=== PATIENT | male | born 1985 | race African-American/Black ===

== ENCOUNTER 2016-12-23 15:28 | Emergency (ER) | payer BC ==
[~2016-12-23] VITALS: Ht 182.9 cm; Wt 165.4 kg
[~2016-12-23 15:28] MED LIST: DIPH25CA65 PO
[2016-12-23 15:37] VITALS: BP 90/54; TEMP 36.9; Ht 182.9 cm; Wt 165.4 kg
[2016-12-23] MEDS ORDERED: DIPHTHERIA/TETANUS/PERTUSSIS 0.5 ML SYR/VIAL IM. ONE (16:45)
[2016-12-23] MEDS ORDERED: XYLOCAINE 1%/SOD BICARB 20 ML VIAL INFIL ONE (16:45)
--- NOTE | 2016-12-23 16:45 | EMERGENCY ROOM VISIT NOTE ---
ED Visit Note First contact with patient: 16:25 CHIEF COMPLAINT: Left leg laceration HISTORY OF PRESENT ILLNESS: This 31-year-old male patient presents to the emergency department ambulatory after cutting the left leg when he was helping to move the dryer and the corner of the dryer hit him and caused a laceration. The bleeding has stopped. Denies weakness or numbness of the foot or toes. The patient denies any pain. The patient denies any other injuries. The patient's Tetanus shot is not up to date. REVIEW OF SYSTEMS: A 6 system review of systems was completed with positives and pertinent negatives listed in the HPI. ALLERGIES: Shrimp MEDICATIONS: None PMH: None SOCIAL HISTORY: The patient lives locally. He is employed PHYSICAL EXAM: Vital Signs: Reviewed Nurse's notes, vital signs stable. GENERAL : This is a 31-year-old male, in no acute distress, well-developed, well- nourished. SKIN: There is a 5 cm long laceration on the medial aspect of the left lower leg. The edges gape apart with traction. There is no foreign material in the wound and it looks clean. There is no bleeding. No deep structures such as tendons, bones, or nerves are seen in the base of the wound. Normal strength and movement of the foot and toes. Capillary refill less than 2 seconds. Normal sensation to light and sharp touch. EMERGENCY DEPARTMENT COURSE: I examined the patient. Using sterile technique the wound was cleaned with Betadine. The area was sterilely draped. 6 ml of 1% buffered lidocaine was used to anesthetize the laceration on the leg. Once the patient was numb, the wound was copiously irrigated under pressure with sterile saline. The wound was explored and was as described above. The laceration was repaired using four interrupted subcuticular 4-0 Vicryl sutures were used to close the subcutaneous tissue and 5 vertical mattress 4-0 nylon and 6 simple interrupted 4-0 nylon sutures were used to close the skin with the wound edges being well approximated. The patient tolerated the procedure well. The bleeding stopped. The area was cleaned with sterile saline and dressed with bacitracin ointment and bandage. The patient was given Td immunization. The patient was discharged home in good condition. Problem List Medical Problems: (1) Asthma Status: Chronic Current/Historical Medications No Active Prescriptions or Reported Meds Allergies Coded Allergies: Shrimp (Verified Allergy, Intermediate, HIVES, 12/23/16) SHELLFISH Vital Signs Date Time Temp Pulse Resp B/P (MAP) Pulse Ox O2 Delivery O2 Flow Rate FiO2 12/23/16 17:52 90 20 98 Room Air 12/23/16 15:37 36.9 114 20 90/54 98 Room Air Medications Administered Medications (Trade) Dose Ordered Sig/Tello Route Start Time Stop Time Status Last Admin Dose Admin Diphtheria/ Pertussis/Tetanus Vacc (Adacel Inj) 0.5 ml ONCE ONCE IM. 12/23/16 16:45 12/23/16 16:46 DC 12/23/16 17:03 0.5 ML Departure Information Impression Primary Impression: Laceration Dispostion Home / Self-Care Condition GOOD Prescriptions No Active Prescriptions or Reported Meds Referrals No Doctor, Assigned (PCP) Patient Instructions ED Laceration All, [facility] Additional Instructions Keep wound clean and dry. Do not allow any crusting or dried blood to accumulate on sutures. If this occurs, use a 1:1 solution of hydrogen peroxide/ water on a Q-tip to clean the wound. Use an antibiotic ointment for 3-4 days, then let wound dry. Suture removal in 12-14 days. Return sooner for any signs of infection (increasing redness, swelling, drainage). Ice and elevate for swelling and pain. Ibuprofen 600 mg and Tylenol 1000 mg every 6 hrs for pain. Keep covered when in sun until sutures removed then SPF 50 or higher for one year. Vitamin E oil if desired two weeks after suture removal for reduction of scar.
[2016-12-23 17:52] VITALS: PULSE 90; O2SAT 98
== END 2016-12-23 17:52 | disposition home or self-care (01) ==
LOC: C.EDB 15:29 → C.EDD 17:52
DX: S81.812A Laceration without foreign body, left lower leg, initial encounter (principal); W22.8XXA Striking against or struck by other objects, initial encounter; Z23 Encounter for immunization; J45.909 Unspecified asthma, uncomplicated; Z91.018 Allergy to other foods

== ENCOUNTER 2020-06-13 00:46 | Inpatient (IN) ==
[2020-06-13] MEDS ORDERED: SODIUM CHLORIDE 0.9% 1000ML 1,000 ML IV ONE (01:00)
[2020-06-13] MEDS ORDERED: fentaNYL citrate 100 MCG/2 ML VIAL IV STA ×2 (01:00→02:49)
[2020-06-13] MEDS ORDERED: ONDANSETRON INJ 2 MG/ML 2 ML VIAL IV STA ×2 (01:00→02:49)
--- NOTE | 2020-06-13 01:02 | Emergency Department Note ---
Impression & Plan DKA (diabetic ketoacidoses), Acute pancreatitis, Acute renal insufficiency ED Provider Note Name: BRYAN MITCHELL Age: 34 Sex: M Arrives Via: Walk-In Informant: Patient ED Provider: Helio Garay MD Chief Complaint: Vomiting Impression: DKA Acute Pancreatitis Acute Renal Insufficiency Medical Decision Makin yr old male without PMH who was diagnosed with DMII two weeks ago but yet to start prescribed medications. Notes several days increasing nausea, vomiting, and weakness. Associated weight loss of 20lbs the last few days. He is dehydrated, tachy and unwell appearing on arrival. Work-up consistent with DKA and renal insufficiency. Lipase quite elevated which may explain back pain though CT is read as negative at this time. Pain control, nausea, control and given IV fluids as clearly dehydrated. Started on insulin GTT and patient feeling much improved. Hospitalist in to evaluate further. No clear evidence that he is septic nor indication for abx at this time. No evidence surgical abdomen. Patient awake, alert, coherent without headache thus no neuro imaging indicated. Prior Medical Record and Triage/Nursing Notes reviewed by Me Additional history obtained from chart Differentials:Infection, dehydration, metabolic abnormality, hypo/hyperglycemia, electrolyte disturbance, anemia, hypoxia, cardiac sources, intracerebral event, toxicologic, neurologic, as well as other pathologies. Vital Signs: reviewed and remarkable for Tachy Interventions: saline lock, nss bolus 2L IV, zofran 4mg IV x 2, fentanyl 75mcg IV x 2, GI cocktail, insulin gtt Labs:Reviewed and remarkable for hyperglycemia, acidosis, elevated lactate, renal insufficiency Imaging:X ray results are stated below per my interpretation: Chest: 1 view: No infiltrate, no effusion, normal cardiac border. EKG:Per My Interpretation: Indication Weakness. Sinus tach 127 bpm, qt 348. No Ectopy. No Ischemia. Compared to EKG 05/03/19 rate has increased Cardiac/Tele Monitoring: Cardiac Monitoring: An Order was placed for continuous cardiac monitoring. The monitor shows a rate of 120 with a sinus tach rhythm. Consults:Dr Magdiel Taylor Hospitalist Plan: Disposition:Hospitalization. Condition: Good History of Present Illness:34 yr old male arrives for evaluation of vomiting. Patient notes he was diagnosed with DMII 2 weeks ago by PCP but has yet to start Metformin he was prescribed. He started feeling ill 4 to 5 days ago. This rapidly progressed to nausea, vomiting and developing mid back pain. Admits abdomen sore though not severe pain. Also has only had one BM in the last few days. No medications taken for this. Associated with 20lb weight loss. Denies fevers, chills, syncope, sob, cp, headache, neck pain, leg swelling, rashes, urinary changes nor other symptoms. No history of similar events. Denies falls, traumas, injury. ROS: See above HPI for pertinent positives & negatives. A total of 10 systems reviewed and were otherwise negative. Past Medical History:DMII, Asthma Past Surgical History:None Family History:Family history DMII Social History:Works at [employer], non-smoker Home Medications:None Allergies:NKDA, shrimp Vitals:Blood Pressure: 138/92, Pulse 121, RR 20, T 37.7C, O2 98% on RA Physical Exam: GENERAL: Patient is very uncomfortable and weak appearing and in moderate distress. Dehydrated appearing EYES: No scleral icterus, unremarkable pupils. ENT: Mucous membranes dry, no nasal congestion. NECK: No masses appreciated, nomeningismus, trachea is midline. RESPIRATORY: No dyspnea. Clear to auscultation and equal bilaterally. No wheeze, no rhonchi. CARDIOVASCULAR: Tachy.No murmurs, rubs, gallops appreciated. GASTROINTESTINAL: Abdomen soft, non-tender, no peritonitis.Bowel sounds positive.No masses appreciated. BACK: No midline tenderness, no CVA tenderness EXTREMITIES: Normal motion all extremities, no cyanosis, no edema. NEUROLOGIC: Alert and oriented, no acute motor or sensory deficits, no focal weakness, cranial nerves grossly intact. SKIN: No rash, no jaundice, no diaphoresis. Poor skin turgor PSYCH: Appropriate GCS: 15 ED Course: Times/Reassessments: gradually improving symptoms, stable, and agreeable to hospitalization Critical Care: I have personally spent 35 minutes of critical care time in the direct management of this patient. Acute DKA. This was a life/limb threatening event. This 35 minutes is in excess of all separately billable procedures. Helio Garay MD Past Med/Surg History Medical History (Updated 06/13/20 @ 05:17 by Helio Garay MD) Asthma Surgical History (System 10/31/19 @ 14:02 by Mary Angel) No significant past surgical history Social History (System 10/31/19 @ 14:02 by Mary Angel) Smoking Status: Never smoker Preferred Language: Croatian Feels Safe at Home: Yes Allergies Allergies Allergy/AdvReac Type Severity Reaction Status Date / Time shrimp Allergy Intermediate HIVES Verified 06/13/20 01:15 Home Meds Home Medications Medication Instructions Recorded Confirmed metformin 500 mg PO DAILY 06/13/20 06/13/20 Results & Data (ED) Vital Signs Vital Signs - 24 hr 06/13/20 00:49 06/13/20 02:46 06/13/20 04:00 Temperature 37.7 C H Temperature Source Temporal Artery Scan Pulse Rate 140 H Pulse Rate [Apical] 121 H 117 H Respiratory Rate 20 20 22 Respiratory Effort / Characteristics Non-Labored Non-Labored Non-Labored Spontaneous Respiratory Depth Normal Normal Normal Blood Pressure 138/93 Blood Pressure [Right Arm] 138/92 129/82 Blood Pressure Mean 108 Blood Pressure Mean [Right Arm] 107 97 Pulse Oximetry 98 98 96 Oxygen Delivery Method Room Air Room Air Room Air Sepsis Recent Fever Within 48 Hours No Sepsis New/Unexplained Change in Mental Status No Sepsis Action Taken by Nursing No Action Required Laboratory Data Result diagrams: 06/13/20 01:19 06/13/20 01:19 Lab Results 06/13/20 06/13/20 06/13/20 Range/Units 01:00 01:00 01:19 WBC 10.38 (4.8-10.8) K/uL RBC 6.07 (4.7-6.1) M/uL Hgb 17.4 (14.0-18.0) g/dL POC Hgb (14.0-18.0) g/dl Hct 49.2 (42-52) % POC Hct (42-52) % MCV 81.1 (80-100) fL MCH 28.7 (25-34) pg MCHC 35.4 (32-36) g/dL RDW Std Deviation 40.5 (36.4-46.3) fL RDW Coeff of Eitan 13.8 (11.5-14.5) % Plt Count 211 (130-400) K/uL MPV 12.5 H (7.4-10.4) fL Immature Gran % (Auto) 1.3 % Neut % (Auto) 72.9 % Lymph % (Auto) 22.4 % [place] % (Auto) 3.2 % Eos % (Auto) 0.0 % Baso % (Auto) 0.2 % Neut # (Auto) 7.58 H (1.4-6.5) K/uL Lymph # (Auto) 2.32 (1.2-3.4) K/uL [place] # (Auto) 0.33 (0.11-0.59) K/uL Eos # (Auto) 0.00 (0-0.5) K/uL Baso # (Auto) 0.02 (0-0.2) K/uL Immature Gran # (Auto) 0.13 H (0.00-0.02) K/uL PT (9.0-12.0) Seconds INR (0.9-1.1) APTT (21.0-31.0) Seconds PTT Ratio POC Sodium (135-144) mmol/L Sodium (136-145) mmol/L POC Potassium (3.3-5.0) mmol/L Potassium (3.5-5.1) mmol/L POC Chloride (101-112) mmol/L Chloride (98-107) mmol/L Carbon Dioxide (21-32) mmol/L POC Total CO2 (24-31) mmol/L Anion Gap (3-11) POC Anion Gap (16-25) mmol/L POC BUN (7-18) mg/dl BUN (7-18) mg/dl Creatinine (0.6-1.4) mg/dl POC Creatinine (0.6-1.3) mg/dl Est Cr Clr Drug Dosing ml/min Est GFR ( Amer) Est GFR (Non-Af Amer) BUN/Creatinine Ratio (10-20) Glucose (70-99) mg/dl POC Glucose (70-99) mg/dl POC Glucose (other) (70-99) mg/dl Lactate (0.4-2.0) mmol/L Calcium (8.5-10.1) mg/dl POC Ioniz Calcium Prakash (1.12-1.32) mmol/l Magnesium (1.8-2.4) mg/dl Total Bilirubin (0.2-1) mg/dl Direct Bilirubin (0-0.2) mg/dl AST (15-37) U/L ALT (12-78) U/L Alkaline Phosphatase (45-117) U/L Troponin I (0-0.045) ng/ml Total Protein (6.4-8.2) gm/dl Albumin (3.4-5.0) gm/dl Lipase (73-393) U/L Beta-Hydroxybutyric Acd (0.2-2.81) mg/dl TSH (0.300-4.500) uIu/ml COVID-19 Eval Order CovFluRsv at [facility] SARS-CoV-2 (PCR) NEGATIVE (Negative) Influenza Type A (PCR) Negative (Neg) Influenza Type B (PCR) Negative (Neg) RSV (RT-PCR) Negative (Neg) 06/13/20 06/13/20 06/13/20 Range/Units 01:19 01:19 01:19 WBC (4.8-10.8) K/uL RBC (4.7-6.1) M/uL Hgb (14.0-18.0) g/dL POC Hgb (14.0-18.0) g/dl Hct (42-52) % POC Hct (42-52) % MCV (80-100) fL MCH (25-34) pg MCHC (32-36) g/dL RDW Std Deviation (36.4-46.3) fL RDW Coeff of Eitan (11.5-14.5) % Plt Count (130-400) K/uL MPV (7.4-10.4) fL Immature Gran % (Auto) % Neut % (Auto) % Lymph % (Auto) % [place] % (Auto) % Eos % (Auto) % Baso % (Auto) % Neut # (Auto) (1.4-6.5) K/uL Lymph # (Auto) (1.2-3.4) K/uL [place] # (Auto) (0.11-0.59) K/uL Eos # (Auto) (0-0.5) K/uL Baso # (Auto) (0-0.2) K/uL Immature Gran # (Auto) (0.00-0.02) K/uL PT 10.9 (9.0-12.0) Seconds INR 1.0 (0.9-1.1) APTT 25.9 (21.0-31.0) Seconds PTT Ratio 0.9 POC Sodium (135-144) mmol/L Sodium 135 L (136-145) mmol/L POC Potassium (3.3-5.0) mmol/L Potassium 3.6 (3.5-5.1) mmol/L POC Chloride (101-112) mmol/L Chloride 107 (98-107) mmol/L Carbon Dioxide 4 L* (21-32) mmol/L POC Total CO2 (24-31) mmol/L Anion Gap 23.0 H (3-11) POC Anion Gap (16-25) mmol/L POC BUN (7-18) mg/dl BUN 12 (7-18) mg/dl Creatinine 1.82 H (0.6-1.4) mg/dl POC Creatinine (0.6-1.3) mg/dl Est Cr Clr Drug Dosing 88.0 ml/min Est GFR ( Amer) 55.7 Est GFR (Non-Af Amer) 48.1 BUN/Creatinine Ratio 6.3 L (10-20) Glucose 461 H* (70-99) mg/dl POC Glucose (70-99) mg/dl POC Glucose (other) (70-99) mg/dl Lactate 1.8 (0.4-2.0) mmol/L Calcium 9.6 (8.5-10.1) mg/dl POC Ioniz Calcium Prakash (1.12-1.32) mmol/l Magnesium 2.4 (1.8-2.4) mg/dl Total Bilirubin 0.6 (0.2-1) mg/dl Direct Bilirubin 0.3 H (0-0.2) mg/dl AST 7 L (15-37) U/L ALT 45 (12-78) U/L Alkaline Phosphatase 125 H (45-117) U/L Troponin I < 0.015 (0-0.045) ng/ml Total Protein 9.0 H (6.4-8.2) gm/dl Albumin 4.4 (3.4-5.0) gm/dl Lipase 6430 H (73-393) U/L Beta-Hydroxybutyric Acd 87.83 H (0.2-2.81) mg/dl TSH 1.190 (0.300-4.500) uIu/ml COVID-19 Eval Order SARS-CoV-2 (PCR) (Negative) Influenza Type A (PCR) (Neg) Influenza Type B (PCR) (Neg) RSV (RT-PCR) (Neg) 06/13/20 06/13/20 06/13/20 Range/Units 01:32 03:50 04:53 WBC (4.8-10.8) K/uL RBC (4.7-6.1) M/uL Hgb (14.0-18.0) g/dL POC Hgb 18.4 H (14.0-18.0) g/dl Hct (42-52) % POC Hct 54 H (42-52) % MCV (80-100) fL MCH (25-34) pg MCHC (32-36) g/dL RDW Std Deviation (36.4-46.3) fL RDW Coeff of Eitan (11.5-14.5) % Plt Count (130-400) K/uL MPV (7.4-10.4) fL Immature Gran % (Auto) % Neut % (Auto) % Lymph % (Auto) % [place] % (Auto) % Eos % (Auto) % Baso % (Auto) % Neut # (Auto) (1.4-6.5) K/uL Lymph # (Auto) (1.2-3.4) K/uL [place] # (Auto) (0.11-0.59) K/uL Eos # (Auto) (0-0.5) K/uL Baso # (Auto) (0-0.2) K/uL Immature Gran # (Auto) (0.00-0.02) K/uL PT (9.0-12.0) Seconds INR (0.9-1.1) APTT (21.0-31.0) Seconds PTT Ratio POC Sodium 138 (135-144) mmol/L Sodium (136-145) mmol/L POC Potassium 3.7 (3.3-5.0) mmol/L Potassium (3.5-5.1) mmol/L POC Chloride 112 (101-112) mmol/L Chloride (98-107) mmol/L Carbon Dioxide (21-32) mmol/L POC Total CO2 7 L* (24-31) mmol/L Anion Gap (3-11) POC Anion Gap 24.0 (16-25) mmol/L POC BUN 10 (7-18) mg/dl BUN (7-18) mg/dl Creatinine (0.6-1.4) mg/dl POC Creatinine 1.1 (0.6-1.3) mg/dl Est Cr Clr Drug Dosing ml/min Est GFR ( Amer) Est GFR (Non-Af Amer) BUN/Creatinine Ratio (10-20) Glucose (70-99) mg/dl POC Glucose 408 H* 394 H* (70-99) mg/dl POC Glucose (other) 475 H* (70-99) mg/dl Lactate (0.4-2.0) mmol/L Calcium (8.5-10.1) mg/dl POC Ioniz Calcium Prakash 1.33 H (1.12-1.32) mmol/l Magnesium (1.8-2.4) mg/dl Total Bilirubin (0.2-1) mg/dl Direct Bilirubin (0-0.2) mg/dl AST (15-37) U/L ALT (12-78) U/L Alkaline Phosphatase (45-117) U/L Troponin I (0-0.045) ng/ml Total Protein (6.4-8.2) gm/dl Albumin (3.4-5.0) gm/dl Lipase (73-393) U/L Beta-Hydroxybutyric Acd (0.2-2.81) mg/dl TSH (0.300-4.500) uIu/ml COVID-19 Eval Order SARS-CoV-2 (PCR) (Negative) Influenza Type A (PCR) (Neg) Influenza Type B (PCR) (Neg) RSV (RT-PCR) (Neg) Administered Medications Insulin Human Regular 250 (units/ Sodium Chloride) 250 mls @ 3.8 mls/hr IV .Q24H [facility]; Protocol Stop: 07/13/20 01:59 Last Titration: 06/13/20 04:59 Dose: 5.5 units/hr, 5.5 mls/hr Documented by: [id number] Cosigned by: [id number] Titration: 06/13/20 03:52 Dose: 4.6 units/hr, 4.6 mls/hr Documented by: [id number] Cosigned by: [id number] Admin: 06/13/20 02:48 Dose: 3.8 units/hr, 3.8 mls/hr Documented by: [id number] Cosigned by: [id number] Sodium Chloride (Nss 1000ml) 1,000 mls @ 250 mls/hr IV .Q4H [facility] Stop: 07/13/20 01:59 Last Admin: 06/13/20 02:50 Dose: 250 mls/hr Documented by: [id number] Discontinued Medications Al Hydrox/Mg Hydrox/Simethicone (Gi Cocktail Ed Use) 1 dose PO ONE ONE Stop: 06/13/20 02:50 Last Admin: 06/13/20 03:14 Dose: 1 dose Documented by: [id number] Fentanyl Citrate (Fentanyl Citrate 100 Mcg/2 Ml Vial) 75 mcg IV NOW STA Stop: 06/13/20 01:01 Last Admin: 06/13/20 01:22 Dose: 75 mcg Documented by: [id number] Fentanyl Citrate (Fentanyl Citrate 100 Mcg/2 Ml Vial) 75 mcg IV NOW STA Stop: 06/13/20 02:50 Last Admin: 06/13/20 03:14 Dose: 75 mcg Documented by: [id number] Sodium Chloride (Nss 1000ml) 1,000 mls @ 999 mls/hr IV .Q1H1M ONE Stop: 06/13/20 02:00 Last Admin: 06/13/20 01:21 Dose: 999 mls/hr Documented by: [id number] Insulin Human Regular (Novolin-R Bolus From Bag) 6 units IV ONE ONE Stop: 06/13/20 02:31 Last Admin: 06/13/20 02:48 Dose: 6 units Documented by: [id number] Cosigned by: [id number] Ondansetron HCl (Ondansetron Inj 2 Mg/Ml 2 Ml Vial) 4 mg IV NOW STA Stop: 06/13/20 01:01 Last Admin: 06/13/20 01:21 Dose: 4 mg Documented by: [id number] Ondansetron HCl (Ondansetron Inj 2 Mg/Ml 2 Ml Vial) 4 mg IV NOW STA Stop: 06/13/20 02:50 Last Admin: 06/13/20 03:14 Dose: 4 mg Documented by: [id number] Discharge Plan Visit Data Chief Complaint: Vomiting Stated Complaint: VOMITING ED Provider: Helio Garay Discharge Problem: DKA (diabetic ketoacidoses), Acute pancreatitis, Acute renal insufficiency Forms Stand Alone Forms: [facility] [employer] Prescriptions Prescriptions: No Action metformin 500 mg tablet extended release 24 hr 500 mg PO DAILY RF: 0 Discharge Problem: DKA (diabetic ketoacidoses) Qualifiers: Diabetes mellitus type: type 1 Diabetes mellitus complication detail: without coma Qualified Code(s): E10.10 - Type 1 diabetes mellitus with ketoacidosis without coma Acute pancreatitis Qualifiers: Pancreatitis type: other Acute pancreatitis complication: unspecified Qualified Code(s): K85.80 - Other acute pancreatitis without necrosis or infection
[2020-06-13 01:30] LABS: Basophils # (auto) 0.02 K/uL (0-0.2); Basophils % (auto) 0.2 %; Hematocrit (blood only) 49.2 % (42-52); Hemoglobin 17.4 g/dL (14.0-18.0); Immature Granulocytes # (auto) 0.13 K/uL (0.00-0.02); Immature Granulocytes % (auto) 1.3 %; Lymphocytes # (auto) 2.32 K/uL (1.2-3.4); Lymphocytes % (auto) 22.4 %; Mean Corpuscular Hemoglobin 28.7 pg (25-34); Mean Corpuscular Hgb Conc 35.4 g/dL (32-36); Mean Corpuscular Volume 81.1 fL (80-100); Mean Platelet Volume 12.5 fL (7.4-10.4); Monocytes # (auto) 0.33 K/uL (0.11-0.59); Monocytes % (auto) 3.2 %; Neutrophils # (auto) 7.58 K/uL (1.4-6.5); Neutrophils % (auto) 72.9 %; Platelet Count 211 K/uL (130-400); RDW Coefficient of Variation 13.8 % (11.5-14.5); RDW Standard Deviation 40.5 fL (36.4-46.3); Red Blood Count 6.07 M/uL (4.7-6.1); White Blood Count 10.38 K/uL (4.8-10.8)
[2020-06-13 01:41] LABS: Partial Thromboplastin Ratio 0.9; Partial Thromboplastin Time 25.9 Seconds (21.0-31.0); Prothrombin Time 10.9 Seconds (9.0-12.0)
[2020-06-13 01:55] LABS: Influenza A virus by PCR Negative (Neg); Influenza B virus by PCR Negative (Neg); RSV by PCR Negative (Neg); SARS CoV2 RNA(COVID-19) InHosp NEGATIVE (Negative)
[2020-06-13 01:58] LABS: Alanine Aminotransferase 45 U/L (12-78); Albumin Level 4.4 gm/dl (3.4-5.0); Aspartate Aminotransferase 7 U/L (15-37); BUN Creatinine Ratio 6.3 (10-20); Bilirubin Direct 0.3 mg/dl (0-0.2); Blood Urea Nitrogen 12 mg/dl (7-18); Calcium 9.6 mg/dl (8.5-10.1); Carbon Dioxide 4 mmol/L (21-32); Chloride 107 mmol/L (98-107); Est GFR (African American) 55.7; Est GFR (Non-African American) 48.1; Glucose 461 mg/dl (70-99); Magnesium 2.4 mg/dl (1.8-2.4); Potassium 3.6 mmol/L (3.5-5.1); Sodium 135 mmol/L (136-145)
[2020-06-13] MEDS ORDERED: DKA GOAL RANGE 150-250 mg/dl ONE ×2 (01:59→05:34)
[2020-06-13] MEDS ORDERED: SODIUM CHLORIDE 0.9% 1000ML 1,000 ML IV SCH ×2 (02:00→05:34)
[2020-06-13 02:06] LABS: iSTAT Creatinine 1.1 mg/dl (0.6-1.3); iSTAT Hemoglobin 18.4 g/dl (14.0-18.0); iSTAT Ionized Calcium 1.33 mmol/l (1.12-1.32); iSTAT Potassium 3.7 mmol/L (3.3-5.0)
[2020-06-13 02:28] LABS: Alkaline Phosphatase 125 U/L (45-117); Bilirubin,Total 0.6 mg/dl (0.2-1); Lipase 6430 U/L (73-393); Troponin I < 0.015 ng/ml (0-0.045)
[2020-06-13] MEDS ORDERED: NovoLIN-R BOLUS FROM BAG IV ONE (02:30)
[2020-06-13 02:36] LABS: Beta-Hydroxybutyrate 87.83 mg/dl (0.2-2.81)
[2020-06-13] MEDS: INSULIN REGULAR 250 UNITS in SODIUM CHLORIDE 0.9% 247.5 ML IV SCH ×2 (02:48→21:37)
[2020-06-13] MEDS ORDERED: GI COCKTAIL ED USE PO ONE (02:49)
[2020-06-13 05:16] LABS: Base Excess ABG -20.8 mEq/L (-9-1.8); HCO3 ABG 6 mmol/L (19-24); Oxygen Saturation ABG 97.1 % (90-95); PCO2 ABG 18 mmHg (35-46); PO2 ABG 108 mmHg (80-95)
[2020-06-13 05:25] LABS: Allen Test Pos (Pos); pH ABG 7.14 (7.35-7.45)
[2020-06-13] MEDS ORDERED: DC ALL PREVIOUSLY ORDERED DIABETES MEDS ONE (05:34)
[2020-06-13] MEDS ORDERED: PENDING 1/2NSS+20mEq KCL IVF SCH (05:34)
[2020-06-13] MEDS ORDERED: ONDANSETRON INJ 2 MG/ML 2 ML VIAL IV PRN (05:34)
[2020-06-13] MEDS ORDERED: ACETAMINOPHEN 325 MG TAB PO PRN (05:34)
[2020-06-13] MEDS ORDERED: NITROGLYCERIN SL 0.4 MG/TAB TAB SL PRN (05:34)
[2020-06-13] MEDS ORDERED: INSULIN REGULAR 250 UNITS in SODIUM CHLORIDE 0.9% 247.5 ML IV SCH (05:34)
[2020-06-13 05:38] LABS: BUN Creatinine Ratio 7.8 (10-20); Calcium 8.9 mg/dl (8.5-10.1); Creatinine Clr Calc Pharmacy 100.1 ml/min; Est GFR (African American) 65.1; Est GFR (Non-African American) 56.2; Magnesium 2.7 mg/dl (1.8-2.4); Phosphorus 2.6 mg/dl (2.5-4.9); Potassium 3.6 mmol/L (3.5-5.1)
[2020-06-13] MEDS ORDERED: GLUCOSE 10 TABS/TUBE PO PRN (06:00)
[2020-06-13] MEDS ORDERED: CARBOHYDRATES FOR HYPOGLYCEMIA PO PRN (06:00)
[2020-06-13] MEDS ORDERED: GLUCOSE 40% GEL 15 GM TUBE PO PRN (06:00)
[2020-06-13] MEDS ORDERED: GLUCAGON FOR INJ 1 MG VIAL SQ PRN (06:00)
[2020-06-13] MEDS ORDERED: DEXTROSE 50% 50 ML SYRINGE IV PRN (06:00)
[2020-06-13 06:09] LABS: Appearance Urine Clear (Clear); Bacteria Urine Automated Negative (Negative); Bilirubin Urine Negative (Negative); Blood Urine 2+ (Negative); Color Urine Yellow; Glucose Urine UA 3+ (Negative); Ketones Urine 4+ (Negative); Leukocyte Esterase Urine Negative (Negative); Nitrite Urine Negative (Negative); Protein Urine 3+ (Negative); Specific Gravity Urine 1.031 (1.000-1.030); Urobilinogen Urine Negative (Negative)
[2020-06-13 06:10] LABS: Beta-Hydroxybutyrate 100.94 mg/dl (0.2-2.81)
[2020-06-13] MEDS ORDERED: PHARMACY GLYCEMIC MGMT CONSULT PRN (06:12)
[2020-06-13] MEDS: SODIUM CHLOR 0.45% + 20MEQ KCL 20 MEQ/1,000 ML BAG IV SCH ×4 (06:20→14:25)
[2020-06-13] MEDS ORDERED: HYDROmorphone INJ 0.5 MG/0.5 ML SYR IV PRN (06:40)
[2020-06-13] MEDS ORDERED: SODIUM CHLORIDE 0.9% 500 ML IV SCH (07:00)
[2020-06-13 07:14] LABS: Chol HDL Ratio 5; Cholesterol 261 mg/dl (0-200); HDL Cholesterol 48 mg/dl; LDL Cholesterol Calculated 163 mg/dl; Triglycerides 248 mg/dl (0-150); VLDL Cholesterol 50 mg/dl
[2020-06-13] MEDS: INSULIN ASPART 100 UNITS/ML 3 ML PEN SC SCH ×5 (07:17→20:50)
[2020-06-13] MEDS: FAMOTIDINE 20 MG in SYRINGE 3 ML IV SCH ×2 (07:22→20:54)
[2020-06-13 07:47] LABS: Estimated Average Glucose 292 mg/dl; Hemoglobin A1C 11.8 % (4.5-5.6)
--- NOTE | 2020-06-13 07:55 | Electrocardiogram Report ---
Test Reason : Blood Pressure : / mmHG Vent. Rate : 127 BPM Atrial Rate : 127 BPM P-R Int : 116 ms QRS Dur : 084 ms QT Int : 348 ms P-R-T Axes : 036 042 016 degrees QTc Int : 505 ms Poor data quality, interpretation may be adversely affected Sinus tachycardia Possible Left atrial enlargement Borderline ECG When compared with ECG of 03-MAY-2019 04:00, Vent. rate has increased BY 58 BPM Nonspecific T wave abnormality no longer evident in Anterolateral leads Confirmed by Cyril Pompa ([id number]) on 06/13/2020 7:55:06 AM Referred By: REFERRED SELF Confirmed By:Cyril Pompa
--- NOTE | 2020-06-13 07:55 | Electrocardiogram Report ---
Test Reason : Blood Pressure : / mmHG Vent. Rate : 123 BPM Atrial Rate : 123 BPM P-R Int : 122 ms QRS Dur : 090 ms QT Int : 336 ms P-R-T Axes : 042 033 006 degrees QTc Int : 481 ms Sinus tachycardia Possible Left atrial enlargement Borderline ECG When compared with ECG of 13-JUN-2020 01:12, No significant change Confirmed by Cyril Pompa ([id number]) on 06/13/2020 7:55:41 AM Referred By: REFERRED SELF Confirmed By:Cyril Pompa
[2020-06-13] MEDS ORDERED: [UNRECOGNIZED DRUG - OTHER] ONE (08:15)
--- NOTE | 2020-06-13 08:25 | History and Physical Report ---
DATE OF ADMISSION: 06/13/2020 CHIEF COMPLAINT: Nausea, vomiting, recent diagnosis of diabetes. HISTORY OF PRESENT ILLNESS: This is a 34-year-old male with past medical history significant for asthma cold-induced, morbid obesity, recent diagnosis of diabetes, comes with nausea, vomiting and found to be in DKA. The patient was diagnosed with diabetes a couple of weeks ago with at that time HbA1c of 8.8, was placed on metformin. He says he has not started the medication and is not checking his sugars at home because he does not have a glucometer yet. In the last 2-3 days, he has had severe nausea, vomiting, could not eat anything and that is the reason he came to the hospital. Denies any abdominal pain.Found to be in DKA, somewhat tachycardic, mild temp spike in the ER. Blood pressure is okay. His creatinine is 1.8, bicarbonate is 4. Sugars are in the [address] of abdomen and pelvis preliminary report was okay. Currently resting comfortably. Denies any chest pain, no shortness of breath, no cough, no fever, no chills, no headache, no blurred vision, no earache, no runny nose, no sore throat, no difficulty swallowing. No abdominal pain. Did not have much bowel movement because he is not eating much. Urine is dark. No swelling in the legs. ALLERGIES: SHRIMP. PAST MEDICAL HISTORY: As mentioned above. PAST SURGICAL HISTORY: None. MEDICATIONS: Metformin extended release 500 mg p.o. daily -- the patient did not start yet. FAMILY HISTORY: Significant for brother has diabetes, father has diabetes. SOCIAL HISTORY: Occasional cigars. No alcohol, no drug use. REVIEW OF SYSTEMS: As per HPI. Rest of the systems negative. PHYSICAL EXAMINATION: GENERAL: The patient is morbidly obese, not in acute distress. VITAL SIGNS: T-max 37.7, pulse in the 100s, blood pressure 138/92, respiratory rate 20, oxygen 98% on room air. HEENT: Pupils are round and reactive to light. Oral mucosa dry. NECK: No JVD, no neck masses. CARDIOVASCULAR: S1, S2 heard. Tachycardia. No murmurs. RESPIRATORY SYSTEM: Normal AP diameter. No accessory muscle use. No wheezing, no crackles. ABDOMEN: Soft, bowel sounds present, nontender. No distention. CENTRAL NERVOUS SYSTEM: Cranial nerves II-XII grossly intact. Nonfocal. EXTREMITIES: No edema, no erythema. LABORATORY DATA: WBC 10, hemoglobin 17.4, hematocrit 49.2, platelets 211. PT 10.9, INR 1, APTT 25.9. Sodium 135, potassium 3.6, chloride 107, bicarbonate 4, BUN 12, creatinine 1.8, serum glucose 461. Lactate 1.8, calcium 9.6, ionized calcium 1.33, magnesium 2.4, total bilirubin 0.6, direct bilirubin 0.3, AST 7, ALT 45, alkaline phosphatase 125. Troponin I less than 0.015. Lipase 6430. Beta hydroxybutyric acid 87.8. TSH 1.1. SARS-CoV-2 PCR negative. Influenza A and B negative. RSV PCR negative. IMAGING: CT of abdomen and pelvis without contrast, preliminary report; areas of mid small and large bowel wall thickening or underdistention, no evidence of obstruction. Normal caliber appendix. Dense material in the gallbladder, fatty liver. No hydronephrosis or ureteral stone. Chest x-ray, no acute findings. EKG: Sinus tachycardia, rate of 127, possible left atrial enlargement. ASSESSMENT AND PLAN: This is a 34-year-old male who presents with nausea, vomiting and found to be in diabetic ketoacidosis. 1. Diabetic ketoacidosis, nausea, vomiting, anion gap metabolic acidosis. Recently diagnosed with diabetes. Was started on metformin, which the patient is not taking. Received fluid bolus and insulin in the Emergency Room. We will continue with aggressive IV fluids per diabetic ketoacidosis protocol with maintenance and change to d5/1n nS when sugars are in range until gap is closed. To supplement with KCL if potassium drops with iv insulin. Insulin drip per diabetic ketoacidosis protocol. Hold metformin. Glycemic pharmacy consult. Follow repeat laboratories and serial laboratories as per diabetic ketoacidosis protocol. Closely monitor in telemetry floor. If worsening of condition, we will transfer to intensive care unit. Subcutaneous insulin when anion gap is closed. Follow repeat HbA1c levels. Closely monitor. 2. Elevated lipase. The patient does not have any abdominal pain and CAT scan on the preliminary report, no significant findings. We will follow the repeat lipase levels. Consulted Gastrointestinal. 3. Acute kidney injury from above, getting fluids. Avoid nephrotoxic agents. We will follow the repeat laboratories. 4. Morbid obesity, needs counseling and sleep apnea test as outpatient. 5. History of asthma cold-induced, currently stable. 6. Deep venous thrombosis prophylaxis, sequential compression devices for now. 6. Disposition: Closely monitor in the telemetry floor. Level 1 full code. Expect to discharge home and follow with his family doctor. AZALIA
--- NOTE | 2020-06-13 08:37 | CT Scan Report ---
ABDOMEN AND PELVIS CT WITHOUT CONTRAST CT DOSE: 1752.79 mGy.cm HISTORY: Acute generalized abdominal pain with vomiting. diffuse abdominal to back pain. Vomit with out BM TECHNIQUE: Multiaxial CT images of the abdomen and pelvis were performed without contrast. A dose lo wering technique was utilized adhering to the principles of ALARA. COMPARISON STUDY: Chest radiograph of same day FINDINGS: Clear lung bases. There is no pneumatosis or pneumoperitoneum. Imaged inferior cardiac tra bers are unremarkable. The spleen, pancreas, and adrenal glands are unremarkable. Question gallbladde r sludge. Hepatic steatosis. Kidneys, ureters, urinary bladder and prostate are unremarkable. Unremar kable aorta and IVC. There is no adenopathy. There is no bowel obstruction or bowel wall thickening. The appendiceal tip measures the upper limits of normal at [address] evidence of acute appendicitis. No ascites. Unremarkable soft tiss ues. Small posterior disc osteophyte complex formations are noted at L3-L4 and L4-L5. Bones appear in tact. IMPRESSION: 1. No bowel obstruction or bowel wall thickening. 2. The appendiceal tip measures within the upper limits of normal at [address] evidence of acute appendicitis. 3. Hepatic steatosis. ACT 112: Negative or not required by law. The above report was generated using voice recognition software. It may contain grammatical, syntax o r spelling errors. Electronically signed by: Abhi Padilla M.D. 06/13/2020 8:36 AM
--- NOTE | 2020-06-13 09:03 | XRay Report ---
XR chest 1V portable HISTORY: 34 years-old Male intractable vomiting acute nausea with vomiting COMPARISON: Chest radiograph 05/03/2019, CT abdomen and pelvis 06/13/2020 TECHNIQUE: Portable AP view of the chest FINDINGS: Cardiomediastinal and hilar silhouettes are within normal limits. Mild right hemidiaphragmatic elevat ion. No pneumothorax, pleural effusion, airspace consolidation or overt pulmonary edema. Bones of the chest appear grossly intact. IMPRESSION: No acute process. ACT 112: Negative or not required by law. The above report was generated using voice recognition software. It may contain grammatical, syntax o r spelling errors. Electronically signed by: Abhi Padilla M.D. 06/13/2020 9:01 AM
[2020-06-13 09:52] LABS: BUN Creatinine Ratio 7.4 (10-20); Creatinine Clr Calc Pharmacy 102.6 ml/min; Est GFR (African American) 67.1; Est GFR (Non-African American) 57.9; Magnesium 2.7 mg/dl (1.8-2.4); Phosphorus 1.7 mg/dl (2.5-4.9); Potassium 3.5 mmol/L (3.5-5.1)
--- NOTE | 2020-06-13 10:18 | Hospitalist Progress Note ---
Date of Service June 13, 2020 Assessment & Plan (1) DKA (diabetic ketoacidoses): A1C>11. Persistent acidosis with bicarb of 5 and gap of 20. Cont insulin at current rate of 9.5 and adjust per protocol. Cont current fluids (D51/2 NSS + KCl 20Meq) @ 250cc/hr until glucose in range and then add dextrose to solution. He is clinically improved. No need for bicarb drip at this time with pH 7.1. Cont PCU monitoring. He is hungry so will allow diet, and cover carbohydrates with DQ insulin per protocol as ordered. I discussed the tentative plan with he and his , and tentatively would consider discharge on once daily basal insulin with metformin intermediate release twice daily as originally given by PCP. Close follow-up will be required. Patient is aware of goal for decreased percent body fat to improve health overall. (2) Acute renal failure: Improving with IVF at current rate. Cont to monitor with q4h BMP. (3) Morbid obesity due to excess calories: Lifestyle modifications already started at home over the last two weeks and reports excessive weight loss during this time. Cont to encourage healthy living and eating. (4) Acid reflux: Pepcid as needed for symptom control. (5) Hepatic steatosis: Related to morbid obesity and hope to improve with weight loss efforts. Will need to be monitored outpatient by PCP. (6) DVT prophylaxis: Heparin/ambulation/SCDs Full Code Dispo-cont PCU monitoring, expect to home when acidosis resolves and symptoms have completely resolved, and tolerating food without issues-likely 1-2 days. This time will be needed for his body to readjust to now utilizing the energy from glucose and to allow us to understand better what his more typical insulin needs will be-currently they are higher than average with acidotic state. Body needs time to adjust, and this was explained to the patient. Seda Paige DO [facility] Hospitalist Admission and Anticipated Discharge Date Admission Date: June 13, 2020 Subjective 34 yo M with new onset DM, likely Type II, recently diagnosed 2 weeks ago. He questioned the accuracy of the diagnosis performed initially, and was noncompliant with metformin given. Presented with acidotic state. Reports improvement overnight with acid reflux, nausea, fatigue and malaise Reports slight headache No other infectious symptoms present such as UTI symptoms, cough, fevers, chills, or SOB. Denies CP or other foot hand pain or decreased sensation at this time Denies changes in vision. Reports feeling hungry Review of Systems Review of Systems: All systems reviewed & are unremarkable except as noted in Subjective Physical Exam Physical Exam: CONSTITUTIONAL: obese, vitals as above, generally well- appearing EYES: normal conjunctivae, no scleral icterus ENT: external ear and nose normal, MMM RESPIRATORY: clear to auscultation bilaterally, no crackles, rales or wheezes, normal respiratory effort CARDIOVASCULAR: tachy rate and regular rhythm, S1 and 2 heard without murmurs, gallops or rubs, no JVD, no peripheral edema GASTROINTESTINAL: soft, nontender, nondistended, no guarding MUSCULOSKELETAL: strength 5/5 throughout, head is normocephalic and atraumatic SKIN: warm and dry NEUROLOGIC: CN 2-12 grossly intact, no sensory deficit, normal cognition, normal speech, no tremor, no gross focal deficits. PSYCHIATRIC: alert cooperative and oriented to person, place and time. Euthymic mood, makes good eye contact, language grossly intact, recent and remote memory grossly intact. Results & Data Results & Data ([facility]) Vital Signs (Past 12 Hours) Vital Signs Temp Pulse Pulse Resp BP BP BP 06/13/20 07:40 36.8 C 117 H 24 155/80 H 06/13/20 06:38 150 H 06/13/20 05:42 36.8 C 120 H 24 134/86 06/13/20 05:34 06/13/20 04:00 117 H 22 129/82 06/13/20 02:46 121 H 20 138/92 06/13/20 00:49 37.7 C H 140 H 20 138/93 Pulse Ox Pulse Ox 06/13/20 07:40 94 06/13/20 06:38 06/13/20 05:42 99 06/13/20 05:34 99 06/13/20 04:00 96 06/13/20 02:46 98 06/13/20 00:49 98 Laboratory Results Short CBC 06/13/20 Range/Units 01:19 WBC 10.38 (4.8-10.8) K/uL Hgb 17.4 (14.0-18.0) g/dL Hct 49.2 (42-52) % Plt Count 211 (130-400) K/uL BMP 06/13/20 06/13/20 06/13/20 01:19 04:53 08:55 Sodium 135 L 138 139 Potassium 3.6 3.6 3.5 Chloride 107 112 H 114 H Carbon Dioxide 4 L* 6 L* 5 L* BUN 12 13 12 Creatinine 1.82 H 1.60 H 1.56 H Glucose 461 H* 436 H* 321 H* Calcium 9.6 8.9 9.0 Cardiac Enzymes 06/13/20 Range/Units 01:19 Troponin I < 0.015 (0-0.045) ng/ml Liver Function 06/13/20 Range/Units 01:19 Total Bilirubin 0.6 (0.2-1) mg/dl Direct Bilirubin 0.3 H (0-0.2) mg/dl AST 7 L (15-37) U/L ALT 45 (12-78) U/L Alkaline Phosphatase 125 H (45-117) U/L Albumin 4.4 (3.4-5.0) gm/dl Urine 06/13/20 Range/Units 05:45 Urine Color Yellow Urine Appearance Clear (Clear) Urine pH 5.0 (4.5-7.5) Ur Specific [place] 1.031 H (1.000-1.030) Urine Protein 3+ H (Negative) Urine Glucose (UA) 3+ H (Negative) Diagnostic Findings [facility], [id number] CT Scan Report Patient: Amber MITCHELL Date: 06/13/20#: [id number]: [address] [facility] ID:[id number]: Date: 1985ty Zip: [place], [place] [address]Vcy: 34Location: 2SSex: MRoom/Bed: [id number] Phy: Seda Paige, DODiagnosis: VOMITINGPri Phy: Kaveh Michelle MDService Date: 06/13/20Fa Phy:Interpreting Phy: William PadillaAdmit Phy: Jed Veloz MD Ordering Phy: Helio Garay M.D. cc: ~ ABDOMEN AND PELVIS CT WITHOUT CONTRAST CT DOSE: 1752.79 mGy.cm HISTORY: Acute generalized abdominal pain with vomiting. diffuse abdominal to back pain. Vomit without BM TECHNIQUE: Multiaxial CT images of the abdomen and pelvis were performed without contrast. A dose lowering technique was utilized adhering to the principles of ALARA. COMPARISON STUDY: Chest radiograph of same day FINDINGS: Clear lung bases. There is no pneumatosis or pneumoperitoneum. Imaged inferior cardiac chambers are unremarkable. The spleen, pancreas, and adrenal glands are unremarkable. Question gallbladder sludge. Hepatic steatosis. Kidneys, ureters, urinary bladder and prostate are unremarkable. Unremarkable aorta and IVC. There is no adenopathy. There is no bowel obstruction or bowel wall thickening. The appendiceal tip measures the upper limits of normal at [address] evidence of acute appendicitis. No ascites. Unremarkable soft tissues. Small posterior disc osteophyte complex formations are noted at L3-L4 and L4-L5. Bones appear intact. IMPRESSION: 1. No bowel obstruction or bowel wall thickening. 2. The appendiceal tip measures within the upper limits of normal at [address] evidence of acute appendicitis. 3. Hepatic steatosis. ACT 112: Negative or not required by law. The above report was generated using voice recognition software. It may contain grammatical, syntax or spelling errors. Electronically signed by: Abhi Padilla M.D. 06/13/2020 8:36 AM Dictated: 06/13/20825Transcribed: 06/13/20825 [facility], [id number] XRay Report Patient: Amber MITCHELL Date: 06/13/20#: [id number]: [address] [facility] ID:[id number]: Date: 1985City Zip: [place], [place] [address]Hcx: 34Location: 2SSex: MRoom/Bed: [id number] Phy: Seda Paige, SAMiagnosis: VOMITINGPri Phy: Kaveh Michelle, MDService Date: 06/13/20Fam Phy:Interpreting Phy: William PadillaAdmit Phy: Sneha Veloz MD Ordering Phy: Helio Garay M.D. cc: ~ XR chest 1V portable HISTORY: 34 years-old Male intractable vomiting acute nausea with vomiting COMPARISON: Chest radiograph 05/03/2019, CT abdomen and pelvis 06/13/2020 TECHNIQUE: Portable AP view of the chest FINDINGS: Cardiomediastinal and hilar silhouettes are within normal limits. Mild right hemidiaphragmatic elevation. No pneumothorax, pleural effusion, airspace consolidation or overt pulmonary edema. Bones of the chest appear grossly intact. IMPRESSION: No acute process. ACT 112: Negative or not required by law. The above report was generated using voice recognition software. It may contain grammatical, syntax or spelling errors. Electronically signed by: Abhi Padilla M.D. 06/13/2020 9:01 AM Dictated: 06/13/20 0858 Medications Administered Current Inpatient Medications Acetaminophen (Acetaminophen 325 Mg Tab) 650 mg PO Q4H PRN PRN Reason: Pain or Fever Stop: 07/13/20 05:33 Dextrose (Dextrose 50% 50 Ml Syringe) 25 - 50 ml IV UD PRN; Protocol PRN Reason: Hypoglycemia Protocol Stop: 07/13/20 05:59 Glucagon (Glucagon For Inj 1 Mg Vial) 1 mg SQ UD PRN; Protocol PRN Reason: Hypoglycemia Protocol Stop: 07/13/20 05:59 Glucose (Glucose 40% Gel 15 Gm Tube) 15 - 30 gm PO UD PRN; Protocol PRN Reason: Hypoglycemia Protocol Stop: 07/13/20 05:59 Glucose (Glucose 10 Tabs/Tube) 4 - 8 tabs PO UD PRN; Protocol PRN Reason: Hypoglycemia Protocol Stop: 07/13/20 05:59 Hydromorphone HCl (Hydromorphone Inj 0.5 Mg/0.5 Ml Syr) 0.5 mg IV Q3H PRN PRN Reason: Pain Stop: 06/27/20 06:39 Last Admin: 06/13/20 07:22 Dose: 0.5 mg Documented by: Insulin Human Regular 250 (units/ Sodium Chloride) 250 mls @ 9.5 mls/hr IV .Q24H VENANCIO; Protocol Stop: 07/13/20 01:59 Last Titration: 06/13/20 09:22 Dose: 9.5 units/hr, 9.5 mls/hr Documented by: Potassium Chloride/Sodium Chloride (1/2 Nss + 20meq Kcl 1000ml) 20 meq in 1,000 mls @ 250 mls/hr IV .Q4H VENANCIO Stop: 07/13/20 05:59 Last Admin: 06/13/20 06:20 Dose: 250 mls/hr Documented by: Famotidine 20 mg/ Syringe 5 mls @ 2.5 mls/min IV BID VENANCIO Stop: 07/13/20 06:44 Last Admin: 06/13/20 07:22 Dose: 2.5 mls/min Documented by: Insulin Aspart (Insulin Aspart 100 Units/Ml 3 Ml Pen) 0 units SC ACHS VENANCIO Stop: 07/13/20 07:29 Last Admin: 06/13/20 07:17 Dose: Not Given Documented by: Miscellaneous (Pending D5 1/2ns+20meq Kcl Ivf) 1 ea N/A Q2H VENANCIO Stop: 07/13/20 05:33 Miscellaneous (Carbohydrates For Hypoglycemia ) 15 - 30 gm PO UD PRN PRN Reason: Hypoglycemia Treatment Stop: 07/13/20 05:59 Miscellaneous Information (Pharmacy Glycemic Mgmt Consult) 1 ea N/A UD PRN PRN Reason: Consult Stop: 07/13/20 06:11 Nitroglycerin (Nitroglycerin Sl 0.4 Mg/Tab Tab) 0.4 mg SL UD PRN PRN Reason: Chest Pain Stop: 07/13/20 05:33 Ondansetron HCl (Ondansetron Inj 2 Mg/Ml 2 Ml Vial) 4 mg IV Q6H PRN PRN Reason: Nausea Stop: 07/13/20 05:33 Last Admin: 06/13/20 07:22 Dose: 4 mg Documented by: (1) DKA (diabetic ketoacidoses) Diabetes mellitus complication detail: without coma Diabetes mellitus type: type 1 Qualified Code(s): E10.10 - Type 1 diabetes mellitus with ketoacidosis without coma
[2020-06-13 10:38] LABS: Beta-Hydroxybutyrate 92.91 mg/dl (0.2-2.81)
--- NOTE | 2020-06-13 10:40 | Gastrointestinal Consultation ---
Date of Consultation June 13, 2020 Assessment & Plan (1) Elevated lipase: Although patient meets the criteria for acute pancreatitis (Pain + elevated Lipase), I do not think he has acute pancreatitis, his pain is from DKA which also causes hyperlipasemia. Please obtain Ultrasound abdomen to check for gallstones. Recall GI if needed. (2) Abdominal pain: History of Present Illness Attending Physician: Seda Paige DO 34 years old male patient with DM, presented to the hospital with diffuse abdominal pain and vomiting, found to have severe anaion gap metabolic acidosis, likely DKA. Labs showed elevated Lipase, normal LFTs, CT scan abdomen showed no evidence of pancreatitis. GI consulted for possible pancreatitis. Patient ate his entire tray of regular diet for breakfast and has no abdominal pain. Reports Hx of GERD and occasional heartburn. No vomiting since admission. No similar episodes in the past. Allergies Allergy/AdvReac Type Severity Reaction Status Date / Time crab Allergy Severe edema Verified 06/13/20 08:58 airway shellfish derived Allergy Severe edema Verified 06/13/20 08:58 airway squid Allergy Severe edema Verified 06/13/20 08:58 airway shrimp Allergy Intermediate HIVES Verified 06/13/20 01:15 Home Medications Medication Instructions Recorded Confirmed Type metformin 500 mg PO DAILY 06/13/20 06/13/20 History Patient History Medical History (Updated 06/13/20 @ 10:43 by Alex Teran MD) Asthma Surgical History (System 10/31/19 @ 14:02 by Mary Angel) No significant past surgical history Social History (System 10/31/19 @ 14:02 by Mary Angel) Smoking Status: Never smoker Second Hand Exposure: No; Do You Dip or Chew Tobacco: No; Tobacco Cessation Education Requested by Patient: No Hx Alcohol Use: No Hx Substance Use: No Preferred Language: Irish Communication Ability: Effective Cycle Director Required: Voice Beliefs That Will Affect Care: Yazidism Yazidism Beliefs: DOES NOT EAT PORK Current Living Situation: Spouse and Family Feels Safe at Home: Yes Safety Concerns: Feels Safe At This Time Assistive Devices: Glasses Review of Systems Constitutional: no fever, no chills, no fatigue and no weight loss Eyes: no eye pain and no worsening vision Ear, Nose, Mouth, Throat: no tinnitus, no dizziness, no nasal discharge and no epistaxis Respiratory: no cough, no dyspnea, no dyspnea on exertion and no wheezing Cardiovascular: no chest pain, no orthopnea, no palpitations and no edema Gastrointestinal: as per Subjective / HPI Musculoskeletal: no stiffness and no myalgia Neurologic: no localized weakness, no paralysis, no tremor(s) and no headache(s) Endocrine: no polydipsia and no polyuria Hematologic / Lymphatic: no easy bleeding and no night sweats Physical Exam Constitutional: + well hydrated, cooperative and comfortable Eyes: PERRL, conjunctivae normal, anicteric sclerae ENMT: external ear and nose normal, oropharynx normal Neck: normal visual inspection and trachea midline Respiratory: normal respiratory effort, lungs clear to auscultation Auscultation: no wheezes Cardiovascular: RRR, no murmur, no edema Gastrointestinal (Abdomen): normal bowel sounds, soft, nontender, no hepatosplenomegaly Musculoskeletal: no cyanosis or clubbing, extremities motor strength 5/5 Skin: no rashes, warm and dry Neurologic: awake; no focal motor deficits Motor/Sensory: no tremor Results & Data ([facility]) Vital Signs (Past 12 Hours) Vital Signs Temp Pulse Pulse Resp BP BP BP 06/13/20 07:40 36.8 C 117 H 24 155/80 H 06/13/20 06:38 150 H 06/13/20 05:42 36.8 C 120 H 24 134/86 06/13/20 05:34 06/13/20 04:00 117 H 22 129/82 06/13/20 02:46 121 H 20 138/92 06/13/20 00:49 37.7 C H 140 H 20 138/93 Pulse Ox Pulse Ox 06/13/20 07:40 94 06/13/20 06:38 06/13/20 05:42 99 06/13/20 05:34 99 06/13/20 04:00 96 06/13/20 02:46 98 06/13/20 00:49 98
[2020-06-13] MEDS ORDERED: PROMETHAZINE HCL 25 MG TAB PO ONE (10:42)
[2020-06-13] MEDS ORDERED: INSULIN GLARGINE SOLOSTAR 100 UNITS/ML 3 ML PEN SC ONE ×2 (12:00→21:00)
[2020-06-13] MEDS: HEPARIN SOD 5,000 UNIT/0.5 ML VIAL SQ SCH ×2 (13:24→20:51)
[2020-06-13 13:27] LABS: BUN Creatinine Ratio 6.8 (10-20); Calcium 8.7 mg/dl (8.5-10.1); Creatinine Clr Calc Pharmacy 98.8 ml/min; Est GFR (African American) 64.1; Est GFR (Non-African American) 55.3; Magnesium 2.8 mg/dl (1.8-2.4); Phosphorus 1.1 mg/dl (2.5-4.9); Potassium 3.6 mmol/L (3.5-5.1)
[2020-06-13] MEDS ORDERED: SODIUM PHOSPHATE 3 MMOL/1 ML 5 ML VIAL IV ONE (13:30)
--- NOTE | 2020-06-13 13:31 | Pharmacy Report ---
Pharmacy Glycemic Short Note 2 - Date of Service June 13, 2020 - Glycemic Short BSG Results (Last 24 hours): 06/13/20 06/13/20 06/13/20 01:19 01:32 03:50 Glucose 461 H* POC Glucose 408 H* POC Glucose (other) 475 H* 06/13/20 06/13/20 06/13/20 04:53 04:53 06:11 Glucose 436 H* POC Glucose 394 H* 392 H* POC Glucose (other) 06/13/20 06/13/20 06/13/20 07:15 08:17 08:55 Glucose 321 H* POC Glucose 338 H* 333 H* POC Glucose (other) 06/13/20 06/13/20 06/13/20 09:15 10:12 11:15 Glucose POC Glucose 329 H* 292 H 268 H POC Glucose (other) 06/13/20 12:12 Glucose POC Glucose 307 H* POC Glucose (other) OUTPATIENT ANTIDIABETIC REGIMEN: * Metformin 500mg daily (newly started) * A1c = 11.8% on 06/13/20 ASSESSMENT: * 34yo T2DM admitted with hyperglycemia, DKA. * Pt initiated on IV insulin infusion per protocol and hydration with 1/2 NS + 20mEq KCl @ 250 ml/hr. Average fluid loss in DKA is 3-6 liters. * Pt is tolerating diet well per CHO counts * IV insulin infusion rates are high; ranging 11.4-19.2 units/hr this morning. Will start the transition process from IV to SQ basal bolus since pt tolerating PO but this will be a LONG and SLOW transition based on baseline labs and degree of acidosis. Most likely patient will require 18-24 hrs on the infusion but transition completely off will be dictated by resolution of AG and acidosis. * Criteria for DC IV insulin infusion : Serum glucose below 200 mg/dL (DKA) or 250 to 300 mg/dL (HHS) Serum anion gap <12 meq/L Serum bicarbonate >15 meq/L Venous pH >7.30 PLAN FOR INPATIENT GLYCEMIC CONTROL: * Hold outpatient oral diabetes medications * Continue IV insulin infusion per protocol * Lower goal range from 150-250 mg/dl to 140-180 mg/dl to increase insulin administration to resolve acidosis. * When serum glucose reaches ~200mg/dl will change IVF to incorportate dextrose to allow for continued insulin administration until ketonemia is controlled while at the same time avoiding hypoglycemia. * Basal insulin * Lantus 45 units SQ x 1 dose with lunch * Will give PM dose of Lantus based on BSG scale * BSG < 140 mg/dl --> 0 units * BSG 140-180mg/dl --> 15 units * BSG > 180 --> 25 units * Will try to convert to Q24hr dosing tomorrow for easy transition to outpatient once daily dosing * Bolus insulin * NovoLog per scale ACHS or Q6hrs while NPO * Fixed Nutritional / Prandial insulin per carb ratio of 1 unit per 5 grams CHO consumed * Will add goal range and CF when pt transitioned off of infusion PLAN FOR DISCHARGE: * A1c > 10% * Goal A1c = <7 % based on age and comorbidities * A1c is greater than or equal to 10% --> consider triple therapy with metformin + basal insulin + (GLP1-RA OR prandial insulin). May need to continue additional antidiabetic agent based on patient specific factors (efficacy, hypo risk, weight gain/loss, side effects, cost) Recommend: * Continuing Metformin and titrating dose upwards. Typically the XR formulation of metformin is better tolerated than the immediate release formulation. Continue to titrate metformin dosing upwards as recommended. Dosage increases should be made in increments of 500 mg weekly, up to 2,000 mg/day PO, given in divided doses. Doses above 2000 mg/day may be better tolerated if divided and given 3 times per day with meals. Max: 2,550 mg/day PO, in divided doses * B12 supplementation may be necessary with snf metformin * Basal insulin: Lantus SQ daily. Dosing TBD. * Pt may need prandial insulin as well. Could start with NovoLog once daily with the largest meal of the day. Dosing TBD * Support Patient Self-Management * Healthy Lifestyle (diet, exercise, and smoking cessation) * Disease self-management (SMBG) * Prevention of complications (BP, Lipid goals, Immunizations) * Consider outpatient Diabetes Self-Management Education & Support * Most patients on multiple-dose insulin (MDI) should SMBG * Prior to meals and snacks * At bedtime * Prior to exercise * When they suspect low blood glucose * After treating low blood glucose until they are normoglycemic * Prior to critical tasks such as driving * Occasionally postprandially
[2020-06-13] MEDS ORDERED: SODIUM PHOSPHATE 30 MMOL in SODIUM CHLORIDE 0.9% 500 ML IV ONE (14:00)
[2020-06-13 14:02] LABS: Beta-Hydroxybutyrate 64.25 mg/dl (0.2-2.81)
[2020-06-13] MEDS: D5W AND 1/2NSS + 20MEQ KCL 20 MEQ/1,000 ML BAG IV SCH ×2 (17:06→21:57)
[2020-06-13] MEDS: PENDING D5 1/2NS+20mEq KCL IVF SCH ×3 (17:25→22:06)
[2020-06-13 17:39] LABS: BUN Creatinine Ratio 6.6 (10-20); Calcium 8.4 mg/dl (8.5-10.1); Creatinine Clr Calc Pharmacy 100.7 ml/min; Est GFR (African American) 65.6; Est GFR (Non-African American) 56.6; Magnesium 2.4 mg/dl (1.8-2.4); Potassium 3.3 mmol/L (3.5-5.1)
[2020-06-13 21:42] LABS: BUN Creatinine Ratio 5.7 (10-20); Calcium 8.3 mg/dl (8.5-10.1); Creatinine Clr Calc Pharmacy 100.1 ml/min; Est GFR (African American) 65.1; Est GFR (Non-African American) 56.2; Magnesium 2.3 mg/dl (1.8-2.4); Potassium 3.1 mmol/L (3.5-5.1)
[2020-06-13] MEDS ORDERED: POTASSIUM PHOS 3 MMOL/1 ML INFUSION IV STA (21:57)
[2020-06-13] MEDS ORDERED: POTASSIUM CHLORIDE CRTAB 20 MEQ TABCR PO STA (21:58)
[2020-06-13] MEDS ORDERED: POTASSIUM PHOSPHATE 40 MMOL in SODIUM CHLORIDE 0.9% 1000ML 1,000 ML IV ONE (22:00)
[2020-06-14 02:05] LABS: BUN Creatinine Ratio 4.9 (10-20); Calcium 8.2 mg/dl (8.5-10.1); Creatinine Clr Calc Pharmacy 100.1 ml/min; Est GFR (African American) 65.1; Est GFR (Non-African American) 56.2; Magnesium 2.3 mg/dl (1.8-2.4); Potassium 3.4 mmol/L (3.5-5.1)
[2020-06-14 02:24] LABS: Phosphorus 1.4 mg/dl (2.5-4.9)
[2020-06-14] MEDS ORDERED: POTASSIUM PHOS 3 MMOL/1 ML INFUSION IV STA ×3 (02:26→23:15)
[2020-06-14] MEDS ORDERED: POTASSIUM PHOSPHATE 40 MMOL in SODIUM CHLORIDE 0.9% 1000ML 1,000 ML IV ONE (02:30)
[2020-06-14] MEDS ORDERED: SODIUM CHLOR 0.45% + 20MEQ KCL 20 MEQ/1,000 ML BAG IV SCH (03:15)
[2020-06-14] MEDS ORDERED: D5W AND 1/2NSS + 20MEQ KCL 20 MEQ/1,000 ML BAG IV SCH (03:30)
[2020-06-14] MEDS: HEPARIN SOD 5,000 UNIT/0.5 ML VIAL SQ SCH ×3 (05:37→20:48)
[2020-06-14 07:37] LABS: BUN Creatinine Ratio 4.4 (10-20); Calcium 8.7 mg/dl (8.5-10.1); Creatinine Clr Calc Pharmacy 112.5 ml/min; Est GFR (African American) 75.2; Est GFR (Non-African American) 64.9; Magnesium 2.2 mg/dl (1.8-2.4)
[2020-06-14 07:57] LABS: Basophils # (auto) 0.01 K/uL (0-0.2); Basophils % (auto) 0.2 %; Eosinophils # (auto) 0.06 K/uL (0-0.5); Eosinophils % (auto) 1.1 %; Hemoglobin 13.9 g/dL (14.0-18.0); Immature Granulocytes # (auto) 0.04 K/uL (0.00-0.02); Immature Granulocytes % (auto) 0.7 %; Lymphocytes # (auto) 1.19 K/uL (1.2-3.4); Mean Corpuscular Hemoglobin 28.1 pg (25-34); Mean Corpuscular Hgb Conc 35.6 g/dL (32-36); Mean Corpuscular Volume 78.9 fL (80-100); Mean Platelet Volume 11.5 fL (7.4-10.4); Monocytes # (auto) 1.12 K/uL (0.11-0.59); Monocytes % (auto) 20.7 %; Neutrophils % (auto) 55.3 %; Platelet Count 149 K/uL (130-400); RDW Coefficient of Variation 14.1 % (11.5-14.5); RDW Standard Deviation 40.5 fL (36.4-46.3); Red Blood Count 4.94 M/uL (4.7-6.1); White Blood Count 5.42 K/uL (4.8-10.8)
[2020-06-14] MEDS: FAMOTIDINE 20 MG in SYRINGE 3 ML IV SCH ×2 (08:23→20:55)
[2020-06-14] MEDS: INSULIN GLARGINE SOLOSTAR 100 UNITS/ML 3 ML PEN SC SCH (08:24)
[2020-06-14] MEDS: INSULIN ASPART 100 UNITS/ML 3 ML PEN SC SCH ×4 (08:25→22:26)
[2020-06-14] MEDS ORDERED: POTASSIUM CHLORIDE IV SCH (08:30)
[2020-06-14] MEDS ORDERED: POTASSIUM PHOSPHATE IV SCH (08:30)
[2020-06-14] MEDS ORDERED: D5W AND NSS IV SCH (08:30)
--- NOTE | 2020-06-14 10:59 | Pharmacy Report ---
Pharmacy Glycemic Short Note 2 - Date of Service June 14, 2020 - Glycemic Short BSG Results (Last 24 hours): 06/13/20 06/13/20 06/13/20 11:15 12:12 12:33 Glucose 304 H* POC Glucose 268 H 307 H* 06/13/20 06/13/20 06/13/20 13:18 14:14 15:24 Glucose POC Glucose 286 H 234 H 212 H 06/13/20 06/13/20 06/13/20 16:31 17:11 17:34 Glucose 176 H POC Glucose 172 H 180 H 06/13/20 06/13/20 06/13/20 18:30 19:32 20:39 Glucose POC Glucose 177 H 179 H 217 H 06/13/20 06/13/20 06/14/20 21:11 21:32 00:31 Glucose 192 H POC Glucose 172 H 242 H 06/14/20 06/14/20 06/14/20 01:36 01:39 02:37 Glucose 271 H POC Glucose 243 H 261 H 06/14/20 06/14/20 06/14/20 03:26 04:33 05:32 Glucose POC Glucose 227 H 200 H 174 H 06/14/20 06/14/20 06/14/20 06:27 07:00 08:31 Glucose 161 H POC Glucose 158 H 131 H 06/14/20 06/14/20 09:33 10:31 Glucose POC Glucose 124 H 121 H OUTPATIENT ANTIDIABETIC REGIMEN: * Metformin 500mg daily (newly started) * A1c = 11.8% on 06/13/20 ASSESSMENT: 06/14/20: * Pt has received 70 units of Lantus + 12 units of NovoLog (CHO coverage) + IV insulin infusion (average rate ~ 17 units/hr overnight) * Labs improved over the past 24 hrs and patient approaching criteria for transition off of IV insulin infusion. Phos still critically low but repleting per providers orders. K+ also LOW but repleting per protocol. * Pt NPO * Will give slightly reduced Lantus dose for NPO; 55 units SQ x 1 dose this AM since patient still has 25 units on board from last evening's dose. * Will start the transition process today around lunch time. Allow the infusion to titrate off and d/c IV insulin infusion when BOTH of the following criteria are met. * BSG below 180mg/dl x 2 checks 1 hr apart * Rate 1 unit/hr or BELOW 06/13/20: * 34yo T2DM admitted with hyperglycemia, DKA. * Pt initiated on IV insulin infusion per protocol and hydration with 1/2 NS + 20mEq KCl @ 250 ml/hr. Average fluid loss in DKA is 3-6 liters. * Pt is tolerating diet well per CHO counts * IV insulin infusion rates are high; ranging 11.4-19.2 units/hr this morning. Will start the transition process from IV to SQ basal bolus since pt tolerating PO but this will be a LONG and SLOW transition based on baseline labs and degree of acidosis. Most likely patient will require 18-24 hrs on the infusion but transition completely off will be dictated by resolution of AG and acidosis. * Criteria for DC IV insulin infusion : Serum glucose below 200 mg/dL (DKA) or 250 to 300 mg/dL (HHS) Serum anion gap <12 meq/L Serum bicarbonate >15 meq/L Venous pH >7.30 PLAN FOR INPATIENT GLYCEMIC CONTROL: * Hold outpatient oral diabetes medications * Start to transition off of IV insulin infusion per protocol * Allow the infusion to titrate off and d/c IV insulin infusion when BOTH of the following criteria are met. * BSG below 180mg/dl x 2 checks 1 hr apart * Rate 1 unit/hr or BELOW * Rate has already decreased by 50% since this morning. Currently running at 11 units/hr with BSG = 121 mg/dl. IV insulin infusion should continue to taper the rate as the Lantus SQ starts working. * Basal insulin * Lantus 55 units SQ x 1 dose this AM. Continue to titrate based on BSG trends. Will try to keep Lantus with once daily dosing to transition to outpatient regimen * Bolus insulin * NovoLog per scale ACHS or Q6hrs while NPO * Fixed Nutritional / Prandial insulin per carb ratio of 1 unit per 5 grams CHO consumed * Will add goal range (110-140 mg/dl) and CF (15) when pt transitioned off of infusion PLAN FOR DISCHARGE: * A1c > 10% * Goal A1c = <7 % based on age and comorbidities * A1c is greater than or equal to 10% --> consider triple therapy with metformin + basal insulin + (GLP1-RA OR prandial insulin). May need to continue additional antidiabetic agent based on patient specific factors (efficacy, hypo risk, weight gain/loss, side effects, cost) Recommend: * Continuing Metformin and titrating dose upwards. Typically the XR formulation of metformin is better tolerated than the immediate release formulation. Continue to titrate metformin dosing upwards as recommended. Dosage increases should be made in increments of 500 mg weekly, up to 2,000 mg/day PO, given in divided doses. Doses above 2000 mg/day may be better tolerated if divided and given 3 times per day with meals. 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 Dosing TBD. * Pt may need prandial insulin as well. Could start with NovoLog once daily with the largest meal of the day. Dosing TBD * Support Patient Self-Management * Healthy Lifestyle (diet, exercise, and smoking cessation) * Disease self-management (SMBG) * Prevention of complications (BP, Lipid goals, Immunizations) * Consider outpatient Diabetes Self-Management Education & Support * Most patients on multiple-dose insulin (MDI) should SMBG * Prior to meals and snacks * At bedtime * Prior to exercise * When they suspect low blood glucose * After treating low blood glucose until they are normoglycemic * Prior to critical tasks such as driving * Occasionally postprandially
[2020-06-14 13:50] LABS: BUN Creatinine Ratio 4.2 (10-20); Calcium 8.4 mg/dl (8.5-10.1); Creatinine Clr Calc Pharmacy 123.9 ml/min; Est GFR (African American) 84.5; Est GFR (Non-African American) 72.9; Magnesium 2.1 mg/dl (1.8-2.4); Phosphorus 1.4 mg/dl (2.5-4.9); Potassium 3.2 mmol/L (3.5-5.1)
[2020-06-14] MEDS ORDERED: Nursing to Pharmacy Communication SCH (15:00)
[2020-06-14] MEDS: INSULIN REGULAR 250 UNITS in SODIUM CHLORIDE 0.9% 247.5 ML IV SCH ×3 (16:48→22:26)
[2020-06-14] MEDS ORDERED: POTASSIUM CHLORIDE CRTAB 20 MEQ TABCR PO STA ×2 (16:58→23:16)
--- NOTE | 2020-06-14 16:58 | Hospitalist Progress Note ---
Date of Service June 14, 2020 Assessment & Plan (1) DKA (diabetic ketoacidoses): A1C>11. Acidosis persists but is improved overall. Transition to diet this evening. Cont phos and K replacement. Clinically improved overall. (2) Acute renal failure: Improving with IVF and oral hydration efforts. (3) Morbid obesity due to excess calories: Lifestyle modifications already started at home over the last two weeks and reports excessive weight loss during this time. Cont to encourage healthy living and eating. (4) Acid reflux: Pepcid as needed for symptom control. (5) Hepatic steatosis: Related to morbid obesity and hope to improve with weight loss efforts. Will need to be monitored outpatient by PCP. (6) DVT prophylaxis: Heparin/ambulation/SCDs Full Code Dispo-cont PCU monitoring for now with transition to diet this evening. Expect to home in next 1-2 days. Seda Paige DO [facility] Hospitalist Admission and Anticipated Discharge Date Admission Date: June 13, 2020 Subjective cc: DKA, new onset diabetes -reports feeling well, feels he could tolerate some food. He says he is bored and wants to go home. -still requiring significant insulin amount, persistently increased need for phosphate for energy creation, still acidotic but improving -transition to diet tonight and continue with SQ insulin. -we discussed that if he goes home too fast, we won't have a good estmation of his needs and his body won't be close to any kind of steady state--therefore, he has a greater likelihood of rebounding based on med compliance or dose adjustment. Review of Systems Review of Systems: All systems reviewed & are unremarkable except as noted in Subjective Physical Exam Physical Exam: CONSTITUTIONAL: obese, vitals as above, generally well- appearing EYES: normal conjunctivae, no scleral icterus ENT: external ear and nose normal, MMM RESPIRATORY: clear to auscultation bilaterally, no crackles, rales or wheezes, normal respiratory effort CARDIOVASCULAR: regular rate and regular rhythm, S1 and 2 heard without murmurs, gallops or rubs, no JVD, no peripheral edema GASTROINTESTINAL: soft, nontender, nondistended, no guarding MUSCULOSKELETAL: strength 5/5 throughout, head is normocephalic and atraumatic SKIN: warm and dry NEUROLOGIC: CN 2-12 grossly intact, no sensory deficit, normal cognition, normal speech, no tremor, no gross focal deficits. PSYCHIATRIC: alert cooperative and oriented to person, place and time. Euthymic mood, makes good eye contact, language grossly intact, recent and remote memory grossly intact. Results & Data Results & Data ([facility]) Vital Signs (Past 12 Hours) Vital Signs Temp Pulse Pulse Resp BP BP Pulse Ox 06/14/20 15:23 37.2 C 91 H 20 132/78 95 06/14/20 08:00 110 H 06/14/20 07:45 36.8 C 99 H 16 150/79 H 95 Laboratory Results Short CBC 06/14/20 Range/Units 07:00 WBC 5.42 (4.8-10.8) K/uL Hgb 13.9 L D (14.0-18.0) g/dL Hct 39.0 L (42-52) % Plt Count 149 (130-400) K/uL BMP 06/13/20 06/13/20 06/14/20 17:11 21:11 01:39 Sodium 140 141 141 Potassium 3.3 L 3.1 L 3.4 L Chloride 117 H 116 H 115 H Carbon Dioxide 10 L 13 L 14 L BUN 11 9 8 Creatinine 1.59 H 1.60 H 1.60 H Glucose 176 H 192 H 271 H Calcium 8.4 L 8.3 L 8.2 L 06/14/20 06/14/20 07:00 12:53 Sodium 142 142 Potassium 3.0 L 3.2 L Chloride 113 H 114 H Carbon Dioxide 15 L 17 L BUN 6 L 5 L Creatinine 1.42 H 1.29 Glucose 161 H 128 H Calcium 8.7 8.4 L Medications Administered Current Inpatient Medications Acetaminophen (Acetaminophen 325 Mg Tab) 650 mg PO Q4H PRN PRN Reason: Pain or Fever Stop: 07/13/20 05:33 Last Admin: 06/14/20 03:53 Dose: 650 mg Documented by: Dextrose (Dextrose 50% 50 Ml Syringe) 25 - 50 ml IV UD PRN; Protocol PRN Reason: Hypoglycemia Protocol Stop: 07/13/20 05:59 Glucagon (Glucagon For Inj 1 Mg Vial) 1 mg SQ UD PRN; Protocol PRN Reason: Hypoglycemia Protocol Stop: 07/13/20 05:59 Glucose (Glucose 40% Gel 15 Gm Tube) 15 - 30 gm PO UD PRN; Protocol PRN Reason: Hypoglycemia Protocol Stop: 07/13/20 05:59 Glucose (Glucose 10 Tabs/Tube) 4 - 8 tabs PO UD PRN; Protocol PRN Reason: Hypoglycemia Protocol Stop: 07/13/20 05:59 Heparin Sodium (Porcine) (Heparin Sod 5,000 Unit/0.5 Ml Vial) 5,000 units SQ Q8 VENANCIO Stop: 07/13/20 13:59 Last Admin: 06/14/20 14:31 Dose: 5,000 units Documented by: Insulin Human Regular 250 (units/ Sodium Chloride) 250 mls @ 7 mls/hr IV .Q24H [facility]; Protocol Stop: 07/13/20 01:59 Last Titration: 06/14/20 15:48 Dose: Infused Documented by: Famotidine 20 mg/ Syringe 5 mls @ 2.5 mls/min IV BID [facility] Stop: 07/13/20 06:44 Last Admin: 06/14/20 08:23 Dose: 2.5 mls/min Documented by: Insulin Aspart (Insulin Aspart 100 Units/Ml 3 Ml Pen) 0 units SC ACHS [facility] Stop: 06/14/20 19:00 Last Admin: 06/14/20 12:45 Dose: Not Given Documented by: Insulin Aspart (Insulin Aspart 100 Units/Ml 3 Ml Pen) 0 units SC ACHS [facility] Stop: 07/14/20 20:59 Insulin Aspart (Insulin Aspart 100 Units/Ml 3 Ml Pen) 0 units SC TODAY@0000,0400 [facility] Stop: 06/15/20 04:01 Insulin Glargine (Insulin Glargine Solostar 100 Units/Ml 3 Ml Pen) 55 units SC DAILY [facility] Stop: 07/14/20 08:59 Last Admin: 06/14/20 08:24 Dose: 55 units Documented by: Miscellaneous (Carbohydrates For Hypoglycemia ) 15 - 30 gm PO UD PRN PRN Reason: Hypoglycemia Treatment Stop: 07/13/20 05:59 Miscellaneous Information (Pharmacy Glycemic Mgmt Consult) 1 ea N/A UD PRN PRN Reason: Consult Stop: 07/13/20 06:11 Miscellaneous Information (Dc Iv Insulin Infusion 1 Ea Jojo) 1 ea N/A Q1H [facility] Stop: 06/14/20 17:01 Nitroglycerin (Nitroglycerin Sl 0.4 Mg/Tab Tab) 0.4 mg SL UD PRN PRN Reason: Chest Pain Stop: 07/13/20 05:33 Ondansetron HCl (Ondansetron Inj 2 Mg/Ml 2 Ml Vial) 4 mg IV Q6H PRN PRN Reason: Nausea Stop: 07/13/20 05:33 Last Admin: 06/13/20 07:22 Dose: 4 mg Documented by: (1) DKA (diabetic ketoacidoses) Diabetes mellitus complication detail: without coma Diabetes mellitus type: type 1 Qualified Code(s): E10.10 - Type 1 diabetes mellitus with ketoacidosis without coma
[2020-06-14] MEDS: POT PHOSPHATE MONOBASIC W/ SOD TAB PO SCH ×2 (17:33→20:48)
[2020-06-14 17:53] LABS: BUN Creatinine Ratio 3.6 (10-20); Calcium 8.7 mg/dl (8.5-10.1); Creatinine Clr Calc Pharmacy 114.1 ml/min; Est GFR (African American) 76.5; Potassium 3.1 mmol/L (3.5-5.1)
[2020-06-14] MEDS ORDERED: ERGOCALCIFEROL 50,000 UNITS 1250 MCG CAP PO SCH (18:00)
[2020-06-14 18:07] LABS: Phosphorus 1.5 mg/dl (2.5-4.9)
[2020-06-14] MEDS: D5W AND 1/2NSS + 20MEQ KCL 20 MEQ/1,000 ML BAG IV SCH (19:02)
[2020-06-14] MEDS: DC IV INSULIN INFUSION 1 EA DEVI SCH (19:03)
[2020-06-14] MEDS ORDERED: INSULIN ASPART 100 UNITS/ML 3 ML PEN SC SCH (21:00)
[2020-06-14 22:20] LABS: BUN Creatinine Ratio 3.7 (10-20); Creatinine Clr Calc Pharmacy 110.2 ml/min; Est GFR (African American) 73.3; Est GFR (Non-African American) 63.3
[2020-06-14 22:23] LABS: Phosphorus 1.3 mg/dl (2.5-4.9)
[2020-06-14 23:01] LABS: Potassium 2.9 mmol/L (3.5-5.1)
[2020-06-14 23:03] LABS: Magnesium 2.1 mg/dl (1.8-2.4)
[2020-06-14] MEDS ORDERED: POTASSIUM PHOSPHATE 30 MMOL in SODIUM CHLORIDE 0.9% 500 ML IV ONE (23:30)
[2020-06-15] MEDS ORDERED: INSULIN ASPART 100 UNITS/ML 3 ML PEN SC SCH
[2020-06-15 04:14] LABS: Basophils # (auto) 0.01 K/uL (0-0.2); Basophils % (auto) 0.2 %; Eosinophils % (auto) 2.1 %; Hematocrit (blood only) 37.9 % (42-52); Hemoglobin 13.8 g/dL (14.0-18.0); Immature Granulocytes # (auto) 0.03 K/uL (0.00-0.02); Immature Granulocytes % (auto) 0.6 %; Lymphocytes # (auto) 2.02 K/uL (1.2-3.4); Lymphocytes % (auto) 43.2 %; Mean Corpuscular Hemoglobin 28.6 pg (25-34); Mean Corpuscular Volume 78.6 fL (80-100); Mean Platelet Volume 11.3 fL (7.4-10.4); Monocytes # (auto) 0.79 K/uL (0.11-0.59); Monocytes % (auto) 16.9 %; Neutrophils # (auto) 1.73 K/uL (1.4-6.5); Platelet Count 142 K/uL (130-400); RDW Coefficient of Variation 14.1 % (11.5-14.5); RDW Standard Deviation 39.9 fL (36.4-46.3); Red Blood Count 4.82 M/uL (4.7-6.1); White Blood Count 4.68 K/uL (4.8-10.8)
[2020-06-15 04:17] LABS: Mean Corpuscular Hgb Conc 36.4 g/dL (32-36)
[2020-06-15 04:33] LABS: BUN Creatinine Ratio 4.6 (10-20); Calcium 8.4 mg/dl (8.5-10.1); Creatinine Clr Calc Pharmacy 123.9 ml/min; Est GFR (African American) 84.5; Est GFR (Non-African American) 72.9; Magnesium 2.1 mg/dl (1.8-2.4); Potassium 3.3 mmol/L (3.5-5.1)
[2020-06-15 04:35] LABS: Phosphorus 2.8 mg/dl (2.5-4.9)
[2020-06-15] MEDS ORDERED: POTASSIUM CHLORIDE CRTAB 20 MEQ TABCR PO STA ×2 (04:39→11:45)
[2020-06-15] MEDS: HEPARIN SOD 5,000 UNIT/0.5 ML VIAL SQ SCH ×2 (05:36→14:57)
[2020-06-15] MEDS: FAMOTIDINE 20 MG in SYRINGE 3 ML IV SCH (08:07)
[2020-06-15] MEDS: INSULIN ASPART 100 UNITS/ML 3 ML PEN SC SCH ×3 (08:07→17:11)
[2020-06-15] MEDS: INSULIN GLARGINE SOLOSTAR 100 UNITS/ML 3 ML PEN SC SCH (08:09)
[2020-06-15] MEDS: POT PHOSPHATE MONOBASIC W/ SOD TAB PO SCH ×3 (08:09→17:12)
[2020-06-15] MEDS ORDERED: DC IV INSULIN INFUSION 1 EA DEVI ONE (09:45)
[2020-06-15 10:11] LABS: BUN Creatinine Ratio 5.4 (10-20); Calcium 8.7 mg/dl (8.5-10.1); Creatinine Clr Calc Pharmacy 133.7 ml/min; Est GFR (African American) 93.1; Est GFR (Non-African American) 80.3; Potassium 2.9 mmol/L (3.5-5.1)
[2020-06-15 10:13] LABS: Phosphorus 2.1 mg/dl (2.5-4.9)
--- NOTE | 2020-06-15 10:43 | Pharmacy Report ---
Glycemic Control Progress Note - Date of Service June 15, 2020 - Scope Glycemic Pharmacist consulted for glycemic control to write orders per [facility] inpatient glycemic control protocol. - Objective Accuchecks BSG(last 24 hours):: 06/14/20 06/14/20 06/14/20 11:41 12:41 12:53 Glucose 128 H POC Glucose 127 H 133 H 06/14/20 06/14/20 06/14/20 13:30 14:53 15:42 Glucose POC Glucose 132 H 158 H 150 H 06/14/20 06/14/20 06/14/20 16:43 17:29 18:18 Glucose 150 H POC Glucose 162 H 218 H 06/14/20 06/14/20 06/14/20 19:43 20:39 21:29 Glucose 207 H POC Glucose 203 H 235 H 06/14/20 06/14/20 06/14/20 21:29 22:29 23:44 Glucose POC Glucose 209 H 209 H 206 H 06/15/20 06/15/20 06/15/20 02:09 03:35 04:00 Glucose 214 H POC Glucose 216 H 211 H 06/15/20 06/15/20 06/15/20 04:34 05:35 06:28 Glucose POC Glucose 209 H 210 H 187 H 06/15/20 06/15/20 06/15/20 07:28 08:41 09:40 Glucose POC Glucose 210 H 256 H 262 H 06/15/20 09:45 Glucose 250 H POC Glucose HbA1c:: Hemoglobin A1c 11.8 % (4.5-5.6) H 06/13/20 06:44 - Recent Pertinent Medications The patient is currently receiving: * Basal insulin: Lantus 55 units every 24 hours * Correctional Insulin: Novolog Correction per scale ACHS Goal Range: Low 140 mg/dL - High 180 mg/dL Correction Factor: -- mg/dL/unit * Prandial insulin: Per carb ratio of 1 unit per 5 grams CHO consumed * Insulin infusion at 6 units/hr overnight - Outpatient Anti-Diabetic Meds metformin 500 mg daily - Assessment & Plan ASSESSMENT: * See progress note from 06/14/20 for more background info, in short: * Pt receiving SQ basal bolus insulin regimen for hyperglycemia secondary to baseline DM (outpatient regimen on hold), mechanical ventilation * Patient is currently receiving an average of 62 units of insulin per day plus insulin infusion at at least 6 units/hr overnight (ran from 3.5 units/hr to 21 units/hr over the entire day) * 55 units of basal insulin * 6 units of prandial/correctional insulin * BSGs ranging 124 - 235 mg/dl over the past 24hrs * Changes needed to insulin regimen: * AM Fasting BSG = 250 mg/dl. This is slightly above goal range for patient based on inpatient targets and co-morbidities. The insulin infusion also was running at 6 units/hr overnight indicating that patient is still insulin resistant. Give Lantus 55 units SQ x 1 this morning with understanding that more insulin can be given at bedtime today. After discussion with physician will transition off insulin infusion around 0900 today. * Post-prandial BSGs are relatively controlled. Continue weight-based stress of 3 as patient only at 1 meal yesterday. * Total daily dose is TBD as patient's oral intake improves. * Additional notes / comments: hold metformin PLAN FOR INPATIENT GLYCEMIC CONTROL: * Continuing Lantus 55 units SQ daily with additional Lantus to be ordered if patient has additional overnight stay * Continuing correction factor of 15 mg/dl/unit * Continuing carb ratio of 1 unit per 5 grams CHO consumed * Continuing goal range of Low 110 mg/dL - High 140 mg/dL RECOMMENDATIONS FOR DISCHARGE: * If patient to leave today, give Lantus 40 units SQ x 1 on 06/15/20 in the evening. * Start Lantus 70 units HS on 06/16/20. Call PCP when fasting BSG < 150 mg/dL for additional dosing. * Start metformin XR 500 mg BIDM and titrate upwards to 1000 mg BIDM by 500 mg/week. Thank you.
[2020-06-15] MEDS ORDERED: POTASSIUM CHLORIDE 40 MEQ in SODIUM CHLORIDE 0.9% 500 ML IV SCH (11:45)
--- NOTE | 2020-06-15 15:20 | Discharge Summary ---
Date of Service June 15, 2020 Admission HPI Per Admitting Provider This is a 34-year-old male with past medical history significant for asthma cold-induced, morbid obesity, recent diagnosis of diabetes, comes with nausea, vomiting and found to be in DKA. The patient was diagnosed with diabetes a couple of weeks ago with at that time HbA1c of 8.8, was placed on metformin. He says he has not started the medication and is not checking his sugars at home because he does not have a glucometer yet. In the last 2-3 days, he has had severe nausea, vomiting, could not eat anything and that is the reason he came to the hospital. Denies any abdominal pain.Found to be in DKA, somewhat tachycardic, mild temp spike in the ER. Blood pressure is okay. His creatinine is 1.8, bicarbonate is 4. Sugars are in the [address] of abdomen and pelvis preliminary report was okay. Currently resting comfortably. Denies any chest pain, no shortness of breath, no cough, no fever, no chills, no headache, no blurred vision, no earache, no runny nose, no sore throat, no difficulty swallowing. No abdominal pain. Did not have much bowel movement because he is not eating much. Urine is dark. No swelling in the legs. Admission Exam Per Admitting Provider GENERAL: The patient is morbidly obese, not in acute distress. VITAL SIGNS: T-max 37.7, pulse in the 100s, blood pressure 138/92, respiratory rate 20, oxygen 98% on room air. HEENT: Pupils are round and reactive to light. Oral mucosa dry. NECK: No JVD, no neck masses. CARDIOVASCULAR: S1, S2 heard. Tachycardia. No murmurs. RESPIRATORY SYSTEM: Normal AP diameter. No accessory muscle use. No wheezing, no crackles. ABDOMEN: Soft, bowel sounds present, nontender. No distention. CENTRAL NERVOUS SYSTEM: Cranial nerves II-XII grossly intact. Nonfocal. EXTREMITIES: No edema, no erythema. Principal Diagnosis Diabetic ketoacidosis New onset Type II DM Morbid obesity Electrolyte derangements Acute kidney injury vitamin D deficiency Heaptic steatosis Discharge Exam CONSTITUTIONAL: obese, vitals as above, generally well-appearing EYES: normal conjunctivae, no scleral icterus ENT: external ear and nose normal, MMM RESPIRATORY: clear to auscultation bilaterally, no crackles, rales or wheezes, normal respiratory effort CARDIOVASCULAR: regular rate and regular rhythm, S1 and 2 heard without murmurs, gallops or rubs, no JVD, no peripheral edema GASTROINTESTINAL: soft, nontender, nondistended, no guarding MUSCULOSKELETAL: strength 5/5 throughout, head is normocephalic and atraumatic SKIN: warm and dry NEUROLOGIC: CN 2-12 grossly intact, no sensory deficit, normal cognition, normal speech, no tremor, no gross focal deficits. PSYCHIATRIC: alert cooperative and oriented to person, place and time. Euthymic mood, makes good eye contact, language grossly intact, recent and remote memory grossly intact. Discharge Data Allergies Allergy/AdvReac Type Severity Reaction Status Date / Time crab Allergy Severe edema Verified 06/13/20 08:58 airway shellfish derived Allergy Severe edema Verified 06/13/20 08:58 airway squid Allergy Severe edema Verified 06/13/20 08:58 airway shrimp Allergy Intermediate HIVES Verified 06/13/20 01:15 pork derived (porcine) Allergy Unknown Unknown Verified 06/14/20 10:14 Pork/Porcine Containing Allergy Unknown Unknown Verified 06/14/20 10:14 Products Consultations 06/13/20 02:29 ED Decision to Admit Stat 06/13/20 05:34 Consult Case Management - Discharge Planning Routine 06/13/20 08:00 Consult Gastroenterology Routine Ordered Studies 06/13/20 01:02 CT abd pelvis wo con Urgent Diabetes Follow up Diabetes Follow-up Needed for HgbA1c >9% Hospital Course (1) DKA (diabetic ketoacidoses): (2) Acute renal failure: (3) Morbid obesity due to excess calories: (4) Hepatic steatosis: The patient is a 34 year old morbidly obese man who was recently diagnosed with diabetes as outpatient. A1C this admission was 11.8. He was noncompliant with the metformin he was recently prescribed and instead went on a very strict diet which caused him to lose a significant amount of weight in just a couple of weeks. He unfortunately presented in a diabetic ketoacidotic state probably partially brought on by this dieting attempt in addition to poor glucose control. He was started on IVF and an insulin drip and potassium, phosphorus and magnesium were replaced as needed. He developed a lipasemia that was related to the DKA which improved with treatment of the acidosis. Acute renal failure was noted with resolution prior to discharge after rehydration. He was extensively counseled on lifestyle modifications and was sent home on once daily Lantus and continued metformin. Close followup is recommended for further titration of these medications over the next few weeks. At time of discharge he was mentating and ambulating at baseline and tolerating PO. He was hemodynamically stable and afebrile and was oxygenating well on room air. Vitamin D deficiency noted at time of discharge. Supplementation recommended but not given at discharge until a pork-free version could be identified for him per spiritism concerns. Deferred to PCP at followup. He was sent home in stable condition with close primary care followup. Total Time Total Time Spent Total Time Spent (In Minutes): 60 Total Time Includes: Examination of the Patient, Discharge Planning, Medication Reconciliation and Communication With Other Providers Discharge Plan Discharge Items Patient Disposition: Home - Self-Care Reason For Visit: VOMITING Discharge Diagnosis: Diabetic ketoacidosis New onset Type II DM Morbid obesity Electrolyte derangements Acute kidney injury vitamin D deficiency Heaptic steatosis Condition on Discharge: Good Activity: Resume your previous activity Non-emergency contact: Primary Care Provider Call non-emergency contact if: you have any medication questions and your symptoms worsen Follow-up/Referrals: Kaveh Michelle MD [Primary Care Provider] - (Date & Time 06/19/2020 11:00 AM Provider Kaveh Michelle MD Department Family Practice [facility] ) Diet: Carb Consistent or DM2 Addtl Attending Provider Instructions: Please take all medications as instructed on the discharge list below. You have been diagnosed with diabetes, which is a problem with how your body utilizes sugar for energy. You are being given once daily dose insulin to take every night before sleep in addition to the metformin you were given by Dr. Michelle on your last visit. For tonight (06/15), you should take 40 Units subcutaneous injection under the skin. Starting 06/16 and moving forward, you should take 70 Units of the Lantus every night, checking your fasting blood sugar every morning before eating. If your blood sugar drops below 150 in the morning when you check it, please contact Dr. Michelle in the clinic to adjust your Lantus dosing. Your insulin needs are going to change as your body begins to improve and as the metformin starts to work as part of your regimen. Your insulin needs are expected to decline as a result. You will need to work closely with your provider over the next couple of weeks in order to ensure a successful transition to home and stabilization of your blood sugar. Please continue to work of efforts to decrease your percent body fat and increase lean muscle mass as we discussed when you were in the hospital. You were found to have a condition called hepatic steatosis ("fatty liver") which will need to be monitored closely with imaging and labwork by your primary care provider. This may have long-term health problems if left untreated. It was a pleasure taking care of you! Please call if you have any questions or problems. You can reach a [facility] hospitalist on duty at [facility] 24 hours a day by calling [phone]. Take care of yourself. Seda Paige, [facility] Center[facility] Pending Studies at Discharge: No Stand-Alone Forms: My [facility], Work/School Release (Inpt) Medications and DC Order Prescriptions: New Lantus Solostar U-100 Insulin 100 unit/mL (3 mL) Insulin Pen 70 unit SC QPM Qty: 15 RF: 1 (DME) OneTouch Verio test strips Strip See Rx Instructions .ROUTE .MEDSUPPLY Qty: 100 RF: 3 (DME) lancets [OneTouch Delica Lancets] 33 gauge misc See Rx Instructions .ROUTE .MEDSUPPLY Qty: 100 RF: 3 (DME) pen needle, diabetic [Pen Needle] 32 gauge x 5/32" needle See Rx Instructions .ROUTE .MEDSUPPLY Qty: 50 RF: 3 Continued metformin 500 mg tablet extended release 24 hr 500 mg PO DAILY RF: 0 Discharge Orders: Discharge Order (Routine); Ordered 06/15/20 Ordered By: Seda Paige Admission Data Admit Date/Time: 06/13/20 04:34 Attending Provider: Seda Paige Admit Provider: Jed Veloz Primary Care Provider: Kaveh Michelle Other Providers: Jed Veloz ; Javi Gray Other Interventions: Discharge Summary Assessment (RN) Last Done: 06/15/20 17:42
[2020-06-15] MEDS ORDERED: POTASSIUM CHLORIDE PWD 20 MEQ PACK PO ONE (16:30)
[2020-06-15] MEDS ORDERED: INSULIN GLARGINE SOLOSTAR 100 UNITS/ML 3 ML PEN SC SCH (21:00)
[2020-06-15] MEDS ORDERED: FAMOTIDINE 20 MG TAB PO SCH (21:00)
== END 2020-06-15 18:23 | disposition home or self-care (01) | DRG 638 ==
LOC: ED 00:46 → 2S 04:34